=== PATIENT | male | born 1995 | race Caucasian/White ===

== ENCOUNTER 2020-01-31 14:39 | Emergency (ER) | payer OTHER ==
[2020-01-31 15:07] VITALS: O2SAT 99
[2020-01-31] MEDS: SODIUM CHLORIDE 0.9% 1000ML 1,000 ML IVS ONE ×2 (15:08→16:08)
--- NOTE | 2020-01-31 15:19 | ED.PDOC ---
History of Present Illness - General Chief Complaint: Exposure to Heat or Cold Time Seen by Provider: 01/31/20 14:51 Source: patient Exam Limitations: no limitations - History of Present Illness Initial Comments: 24 y/o male reports to ER after passing out and vomiting. He has been working in the [facility] for days in a row and in spite of gatorade and water has become weak, dizzy, and had diarrhea for a few days. [place] The weather is much cooler in [place]. He denies drinking alcohol. He has noted some abd pain when he urinates as well as some R sided flank pain. Timing/Duration: 4-6 hours, getting worse Severity: moderate Improving Factors: cold therapy, rest Associated Symptoms: headaches, nausea/vomiting, weakness Allergies/Adverse Reactions: Allergies Amoxicillin Allergy (Verified 01/31/20 15:48) Review of Systems - Review of Systems Constitutional: States: weakness EENTM: States: no symptoms reported Respiratory: States: no symptoms reported Cardiology: States: no symptoms reported Gastrointestinal/Abdominal: States: diarrhea, nausea, vomiting Genitourinary: States: pain, other - no dysuria Musculoskeletal: States: back pain Skin: States: no symptoms reported Neurological: States: headache Past Medical History (General) - Patient Medical History Hx Seizures: No Hx Stroke: No Hx Dementia: No Hx Asthma: No Hx of COPD: No Hx Cardiac Disorders: No Hx Congestive Heart Failure: No Hx Pacemaker: No Hx Hypertension: No Hx Thyroid Disease: No Hx Diabetes: No Hx Gastroesophageal Reflux: No Hx Renal Disease: No Hx Cancer: No Hx of HIV: No Hx Hepatitis C: No Hx MRSA: No Surgical History: no surgical history - Vaccination History Hx Influenza Vaccination: No - Social History Hx Tobacco Use: Yes Hx Chewing Tobacco Use: Yes Hx Alcohol Use: Yes Family Medical History - Family History Mother Family History: Unknown Living Status: Unknown Physical Exam - Physical Exam General Appearance: Alert, No apparent distress Eye Exam: bilateral normal Ears, Nose, Throat: hearing grossly normal Neck: non-tender, full range of motion, supple, normal inspection Respiratory: lungs clear, normal breath sounds, no respiratory distress, no accessory muscle use Cardiovascular/Chest: regular rate, rhythm, no edema, no murmur Gastrointestinal/Abdominal: normal bowel sounds, non tender, soft Back Exam: CVA tenderness (R) Extremity: normal range of motion, non-tender, normal inspection 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 Copy, Patient Portal Self Enrollment Instructions: DI for Heat Exhaustion and Heat Stroke
[2020-01-31] MEDS: POTASSIUM CHLORIDE ELIXIR 20 MEQ/15 ML UD PO ONE (16:25)
[2020-01-31 17:01] VITALS: BP 149/79; TEMP 97.9
== END 2020-01-31 17:01 | disposition home or self-care (01) ==
LOC: ER 14:39
DX: T67.5XXA Heat exhaustion, unspecified, initial encounter (principal); E87.6 Hypokalemia; Z87.891 Personal history of nicotine dependence; Z88.1 Allergy status to other antibiotic agents; X30.XXXA Exposure to excessive natural heat, initial encounter; Y92.89 Other specified places as the place of occurrence of the external cause; Y99.0 Civilian activity done for income or pay
CPT/HCPCS: 36415; 80053; 80307; 81001; 82550; 85025; 93005; J7030